=== PATIENT | male | born 1955 | race Caucasian/White ===

== ENCOUNTER 2017-07-20 21:01 | Inpatient (IN) | payer OTHER ==
[2017-07-20 21:37] LABS: ADD MAN DIFF? NO
[2017-07-20 21:38] LABS: BASOPHIL # 0.1 10^3/ul (0.0-0.1); BASOPHILS % 0.7 % (0.0-2.0); EOSINOPHILS # 0.2 10^3/ul (0.0-0.5); HEMATOCRIT 41.5 % (42.0-52.0); HEMOGLOBIN 13.9 g/dl (14.0-18.0); LYMPHOCYTES # 2.2 10^3/ul (0.8-2.9); LYMPHOCYTES % 21.5 % (15.0-51.0); MEAN CORPUSCULAR HEMOGLOBIN 32.4 pg (29.0-33.0); MEAN CORPUSCULAR HGB CONC 33.5 g/dl (32.0-37.0); MEAN CORPUSCULAR VOLUME 96.7 fl (82.0-101.0); MEAN PLATELET VOLUME 9.3 fl (7.4-10.4); MONOCYTE # 0.6 10^3/ul (0.3-0.9); MONOCYTES % 5.8 % (0.0-11.0); NEUTROPHIL # 7.1 10^3/ul (1.6-7.5); NEUTROPHILS % 69.4 % (39.0-77.0); PLATELET COUNT 249 10^3/UL (140-415); RED BLOOD COUNT 4.29 10^6/ul (4.70-6.10); RED CELL DISTRIBUTION WIDTH 13.7 % (11.5-14.5)
[2017-07-20 21:38] LABS: WHITE BLOOD COUNT 10.2 10^3/ul (4.8-10.8)
[2017-07-20] MEDS: ONDANSETRON 4 MG INJ IV (21:38)
[2017-07-20] MEDS: morphine 4 MG/ML VIAL IV (21:38)
[2017-07-20] MEDS: SOD CHLORIDE 0.9% 500 ML IV (21:38)
[2017-07-20 21:57] LABS: INR 1.13; PROTIME 14.7 Sec (11.9-14.9); PT RATIO 1.1
[2017-07-20 21:58] LABS: PARTIAL THROMBOPLASTIN TIME 35.7 Sec (25.0-35.0)
[2017-07-20] MEDS: SOD CHLORIDE 0.9% 100 ML (22:27)
[2017-07-20] MEDS: IOHEXOL 100 ML (22:27)
[2017-07-20 22:33] LABS: ANION GAP 15 (8-16); BLOOD UREA NITROGEN 17 mg/dl (7-20); CALCIUM 8.9 mg/dl (8.4-10.2); CARBON DIOXIDE 23 mmol/L (21-31); CHLORIDE 106 mmol/L (97-110); CREATININE 0.47 mg/dl (0.61-1.24); GLUCOSE 119 mg/dl (70-220); POTASSIUM 3.6 mmol/L (3.5-5.1); SODIUM 140 mmol/L (135-144)
[2017-07-20 22:46] LABS: TROPONIN-I < 0.012 ng/ml (0.00-0.12)
[2017-07-20] MEDS: DIPHENHYDRAMINE 50 MG INJ IV (23:20)
[2017-07-21] MEDS ORDERED: NITROGLYCERIN (SL) 0.4 MG TAB SL
[2017-07-21] MEDS ORDERED: NACL 0.9% 3 ML SYG IV
[2017-07-21] MEDS ORDERED: ACETAMINOPHEN 325 MG TAB PO ×2
[2017-07-21] MEDS ORDERED: ONDANSETRON 4 MG INJ IV ×2
[2017-07-21 01:40] LABS: ETHANOL < 10.0 mg/dl
[2017-07-21] MEDS: morphine 2 MG INJ IV ×4 (02:54→21:14)
[2017-07-21] MEDS: GABAPENTIN 100 MG CAP PO ×4 (02:54→21:15)
[2017-07-21] MEDS: SOD CHLORIDE 0.9% 1,000 ML IV (02:59)
[2017-07-21 04:16] LABS: ADD MAN DIFF? NO
[2017-07-21 04:18] LABS: WHITE BLOOD COUNT 9.5 10^3/ul (4.8-10.8)
[2017-07-21 04:18] LABS: BASOPHILS % 0.4 % (0.0-2.0); EOSINOPHILS # 0.2 10^3/ul (0.0-0.5); EOSINOPHILS % 2.2 % (0.0-7.0); HEMATOCRIT 39.2 % (42.0-52.0); HEMOGLOBIN 13.3 g/dl (14.0-18.0); LYMPHOCYTES # 2.3 10^3/ul (0.8-2.9); MEAN CORPUSCULAR HEMOGLOBIN 32.8 pg (29.0-33.0); MEAN CORPUSCULAR HGB CONC 33.9 g/dl (32.0-37.0); MEAN CORPUSCULAR VOLUME 96.8 fl (82.0-101.0); MEAN PLATELET VOLUME 9.1 fl (7.4-10.4); MONOCYTE # 0.5 10^3/ul (0.3-0.9); MONOCYTES % 5.7 % (0.0-11.0); NEUTROPHIL # 6.4 10^3/ul (1.6-7.5); NEUTROPHILS % 67.3 % (39.0-77.0); PLATELET COUNT 231 10^3/UL (140-415); RED BLOOD COUNT 4.05 10^6/ul (4.70-6.10); RED CELL DISTRIBUTION WIDTH 13.7 % (11.5-14.5)
[2017-07-21 04:36] LABS: ALANINE AMINOTRANSFERASE 18 IU/L (13-69); ALBUMIN 3.6 g/dl (3.3-4.9); ALBUMIN/GLOBULIN RATIO 0.94; ALKALINE PHOSPHATASE 109 IU/L (42-121); ANION GAP 12 (8-16); ASPARTATE AMINO TRANSFERASE 15 IU/L (15-46); BLOOD UREA NITROGEN 12 mg/dl (7-20); CALCIUM 8.3 mg/dl (8.4-10.2); CARBON DIOXIDE 26 mmol/L (21-31); CHLORIDE 109 mmol/L (97-110); CHOL/HDL RATIO 2.1 RATIO; CHOLESTEROL 104 mg/dl (100-200); CREATINE KINASE 54 IU/L (23-200); CREATININE 0.47 mg/dl (0.61-1.24); GLUCOSE 104 mg/dl (70-220); HDL CHOLESTEROL 49 mg/dl (30-78); LDL CHOLESTEROL,CALCULATED 44 mg/dl; MAGNESIUM 2.1 mg/dl (1.7-2.5); POTASSIUM 4.1 mmol/L (3.5-5.1); SODIUM 143 mmol/L (135-144); TOTAL PROTEIN 7.4 g/dl (6.1-8.1); TRIGLYCERIDES 56 mg/dl (0-149)
[2017-07-21 04:41] LABS: ADD UMIC NO; UR ASCORBIC ACID NEGATIVE (NEGATIVE); UR BILIRUBIN (Dip) NEGATIVE (NEGATIVE); UR BLOOD (Dip) NEGATIVE (NEGATIVE); UR CLARITY CLEAR (CLEAR); UR COLOR STRAW (YELLOW); UR GLUCOSE (Dip) NEGATIVE (NEGATIVE); UR KETONES (Dip) NEGATIVE (NEGATIVE); UR LEUKOCYTE ESTERASE (Dip) NEGATIVE Leu/ul (NEGATIVE); UR NITRITE (Dip) NEGATIVE (NEGATIVE); UR SPECIFIC GRAVITY (Dip) 1.021 (1.003-1.030); UR TOTAL PROTEIN (Dip) NEGATIVE (NEGATIVE); UR UROBILINOGEN (Dip) NEGATIVE (NEGATIVE)
[2017-07-21 04:43] LABS: HEMOGLOBIN A1C 5.4 % (0-5.9)
[2017-07-21 04:48] LABS: CK INDEX 1.3
[2017-07-21 04:49] LABS: CK-MB 0.71 ng/ml (0.0-2.4); TROPONIN-I < 0.012 ng/ml (0.00-0.12)
[2017-07-21 04:54] LABS: BARBITURATES Positive (NEGATIVE); BENZODIAZEPINES Positive (NEGATIVE); CANNABINOIDS Negative (NEGATIVE); OPIATES Positive (NEGATIVE)
[2017-07-21 05:03] LABS: AMPHETAMINE/METHAMPHETAMINE Negative (NEGATIVE); COCAINE Negative (NEGATIVE)
[2017-07-21] MEDS: ALBUTEROL/IPRATROPIUM (NEB) 3 ML AMP INH ×2 (05:23→08:43)
[2017-07-21] MEDS: ATENOLOL 50 MG TAB PO (08:55)
[2017-07-21] MEDS: DULOXETINE 30 MG CAP DR PO (08:55)
[2017-07-21] MEDS: FOLIC ACID 1 MG TAB PO (08:55)
[2017-07-21] MEDS: HYDROCHLOROTHIAZIDE 25 MG TAB PO (08:55)
[2017-07-21] MEDS: ARIPIPRAZOLE 5 MG TAB PO (08:55)
[2017-07-21 12:47] LABS: CREATINE KINASE 47 IU/L (23-200)
[2017-07-21 12:58] LABS: CK INDEX 1.3
[2017-07-21 13:01] LABS: CK-MB 0.61 ng/ml (0.0-2.4); TROPONIN-I < 0.012 ng/ml (0.00-0.12)
[2017-07-21] MEDS: CLOPIDOGREL 75 MG TAB PO (16:37)
[2017-07-21] MEDS: ATORVASTATIN 40 MG TAB PO (21:14)
[2017-07-22] MEDS: morphine 2 MG INJ IV ×3 (01:15→09:59)
[2017-07-22] MEDS: REGADENOSON 0.4 MG/5 ML SYG (08:45)
[2017-07-22] MEDS: HYDROCHLOROTHIAZIDE 25 MG TAB PO (09:55)
[2017-07-22] MEDS: CLOPIDOGREL 75 MG TAB PO (09:55)
[2017-07-22] MEDS: GABAPENTIN 100 MG CAP PO ×3 (09:55→20:40)
[2017-07-22] MEDS: FOLIC ACID 1 MG TAB PO (09:55)
[2017-07-22] MEDS: ATENOLOL 50 MG TAB PO (09:55)
[2017-07-22] MEDS: ARIPIPRAZOLE 5 MG TAB PO (09:55)
[2017-07-22] MEDS: DULOXETINE 30 MG CAP DR PO (09:56)
[2017-07-22] MEDS: HYDROCODONE/APAP (5/325) TAB PO ×2 (13:30→20:40)
[2017-07-22] MEDS: ATORVASTATIN 40 MG TAB PO (20:40)
[2017-07-23] MEDS: FOLIC ACID 1 MG TAB PO (08:32)
[2017-07-23] MEDS: ARIPIPRAZOLE 5 MG TAB PO (08:32)
[2017-07-23] MEDS: DULOXETINE 30 MG CAP DR PO (08:32)
[2017-07-23] MEDS: GABAPENTIN 100 MG CAP PO ×3 (08:32→20:18)
[2017-07-23] MEDS: HYDROCHLOROTHIAZIDE 25 MG TAB PO (08:33)
[2017-07-23] MEDS: ATENOLOL 50 MG TAB PO (08:33)
[2017-07-23 08:46] LABS: URINE DRUG SCREEN RESULT DRUG(S) DETECTED:
[2017-07-23] MEDS: HYDROCODONE/APAP (5/325) TAB PO ×3 (08:57→20:23)
[2017-07-23] MEDS: ATORVASTATIN 40 MG TAB PO (20:18)
[2017-07-24] MEDS: HYDROCODONE/APAP (5/325) TAB PO ×4 (03:10→17:42)
[2017-07-24] MEDS: DULOXETINE 30 MG CAP DR PO (08:30)
[2017-07-24] MEDS: ARIPIPRAZOLE 5 MG TAB PO (08:31)
[2017-07-24] MEDS: FOLIC ACID 1 MG TAB PO (08:31)
[2017-07-24] MEDS: HYDROCHLOROTHIAZIDE 25 MG TAB PO (08:31)
[2017-07-24] MEDS: CLOPIDOGREL 75 MG TAB PO (08:31)
[2017-07-24] MEDS: GABAPENTIN 100 MG CAP PO ×3 (08:32→20:26)
[2017-07-24] MEDS: ATENOLOL 50 MG TAB PO (08:32)
[2017-07-24] MEDS: ATORVASTATIN 40 MG TAB PO (20:26)
[2017-07-25] MEDS: DULOXETINE 30 MG CAP DR PO (09:03)
[2017-07-25] MEDS: FOLIC ACID 1 MG TAB PO (09:03)
[2017-07-25] MEDS: ARIPIPRAZOLE 5 MG TAB PO (09:03)
[2017-07-25] MEDS: GABAPENTIN 100 MG CAP PO ×3 (09:04→21:06)
[2017-07-25] MEDS: CLOPIDOGREL 75 MG TAB PO (09:04)
[2017-07-25] MEDS: HYDROCHLOROTHIAZIDE 25 MG TAB PO (09:04)
[2017-07-25] MEDS: ATENOLOL 50 MG TAB PO (09:06)
[2017-07-25] MEDS: HYDROCODONE/APAP (5/325) TAB PO ×3 (12:49→21:06)
[2017-07-25] MEDS: ATORVASTATIN 40 MG TAB PO (21:06)
[2017-07-25] MEDS: ZOLPIDEM 5 MG TAB PO (22:36)
[2017-07-26] MEDS: HYDROCODONE/APAP (5/325) TAB PO ×3 (08:20→17:41)
[2017-07-26] MEDS: DULOXETINE 30 MG CAP DR PO (08:21)
[2017-07-26] MEDS: GABAPENTIN 100 MG CAP PO ×3 (08:21→21:23)
[2017-07-26] MEDS: ARIPIPRAZOLE 5 MG TAB PO (08:21)
[2017-07-26] MEDS: FOLIC ACID 1 MG TAB PO (08:22)
[2017-07-26] MEDS: HYDROCHLOROTHIAZIDE 25 MG TAB PO (08:22)
[2017-07-26] MEDS: ATENOLOL 50 MG TAB PO (08:23)
[2017-07-26] MEDS: ATORVASTATIN 40 MG TAB PO (21:23)
[2017-07-27] MEDS: ARIPIPRAZOLE 5 MG TAB PO (08:23)
[2017-07-27] MEDS: GABAPENTIN 100 MG CAP PO ×3 (08:23→21:09)
[2017-07-27] MEDS: DULOXETINE 30 MG CAP DR PO (08:23)
[2017-07-27] MEDS: FOLIC ACID 1 MG TAB PO (08:23)
[2017-07-27] MEDS: ATENOLOL 50 MG TAB PO (08:26)
[2017-07-27] MEDS: HYDROCODONE/APAP (5/325) TAB PO ×4 (08:35→21:10)
[2017-07-27] MEDS: HYDROCHLOROTHIAZIDE 25 MG TAB PO (08:36)
[2017-07-27] MEDS: ATORVASTATIN 40 MG TAB PO (21:09)
[2017-07-28] MEDS: DULOXETINE 30 MG CAP DR PO (09:18)
[2017-07-28] MEDS: GABAPENTIN 100 MG CAP PO ×2 (09:18→13:58)
[2017-07-28] MEDS: FOLIC ACID 1 MG TAB PO (09:19)
[2017-07-28] MEDS: HYDROCODONE/APAP (5/325) TAB PO (09:19)
[2017-07-28] MEDS: ATENOLOL 50 MG TAB PO (09:19)
[2017-07-28] MEDS: HYDROCHLOROTHIAZIDE 25 MG TAB PO (09:20)
[2017-07-28] MEDS: ARIPIPRAZOLE 5 MG TAB PO (10:32)
== END 2017-07-28 16:19 | disposition home or self-care (01) | DRG 65 ==
LOC: MS4 23:31 → E/R 21:01
DX: I63.9 Cerebral infarction, unspecified (principal); G81.94 Hemiplegia, unspecified affecting left nondominant side; F33.9 Major depressive disorder, recurrent, unspecified; I67.1 Cerebral aneurysm, nonruptured; J84.10 Pulmonary fibrosis, unspecified; F17.210 Nicotine dependence, cigarettes, uncomplicated; R07.9 Chest pain, unspecified; E78.5 Hyperlipidemia, unspecified; I10 Essential (primary) hypertension; J44.9 Chronic obstructive pulmonary disease, unspecified; K21.9 Gastro-esophageal reflux disease without esophagitis; F41.9 Anxiety disorder, unspecified; G89.29 Other chronic pain; I25.10 Atherosclerotic heart disease of native coronary artery without angina pectoris; D36.7 Benign neoplasm of other specified sites; Z76.5 Malingerer [conscious simulation]; Z79.02 Long term (current) use of antithrombotics/antiplatelets; Z95.5 Presence of coronary angioplasty implant and graft; Z91.14 Patient's other noncompliance with medication regimen; Z86.718 Personal history of other venous thrombosis and embolism
CPT/HCPCS: 36415; 70450; 70546; 70549; 70551; 71045; 71275; 76536; 78452; 80048; 80053; 80061; 80306; 80307; 81003; 82550; 82553; 83036; 83735; 84443; 84484; 85025; 85610; 85730; 87081; 92526; 92610; 93005; 93017; 93306; 93880; 93922; 93970; 94640; 94664; 96374; 96375; 97116; 97161; 97165; 97530; 97535; 99217; 99285-25; G0378

== ENCOUNTER 2017-08-02 14:20 | Emergency (ER) | payer SELFPAY, OTHER | END 2017-08-02 17:56 | disposition left against medical advice (07) | LOC: E/R 14:20 | DX: Z53.21 Procedure and treatment not carried out due to patient leaving prior to being seen by health care provider (principal) | CPT/HCPCS: 93005 ==

== ENCOUNTER 2017-08-06 00:43 | Emergency (ER) | payer OTHER ==
[2017-08-06 03:57] LABS: ADD UMIC NO; UR ASCORBIC ACID NEGATIVE (NEGATIVE); UR BILIRUBIN (Dip) NEGATIVE (NEGATIVE); UR BLOOD (Dip) NEGATIVE (NEGATIVE); UR CLARITY CLEAR (CLEAR); UR COLOR STRAW (YELLOW); UR GLUCOSE (Dip) NEGATIVE (NEGATIVE); UR KETONES (Dip) NEGATIVE (NEGATIVE); UR LEUKOCYTE ESTERASE (Dip) NEGATIVE Leu/ul (NEGATIVE); UR NITRITE (Dip) NEGATIVE (NEGATIVE); UR SPECIFIC GRAVITY (Dip) 1.004 (1.003-1.030); UR TOTAL PROTEIN (Dip) NEGATIVE (NEGATIVE); UR UROBILINOGEN (Dip) NEGATIVE (NEGATIVE)
[2017-08-06 04:04] LABS: ADD MAN DIFF? NO
[2017-08-06 04:10] LABS: BARBITURATES Negative (NEGATIVE); CANNABINOIDS Negative (NEGATIVE)
[2017-08-06 04:11] LABS: AMPHETAMINE/METHAMPHETAMINE Negative (NEGATIVE); BENZODIAZEPINES Negative (NEGATIVE); COCAINE Negative (NEGATIVE)
[2017-08-06 04:23] LABS: OPIATES Positive (NEGATIVE)
[2017-08-06 04:28] LABS: ALANINE AMINOTRANSFERASE 30 IU/L (13-69); ALBUMIN 4.2 g/dl (3.3-4.9); ALBUMIN/GLOBULIN RATIO 1.05; ALKALINE PHOSPHATASE 95 IU/L (42-121); ANION GAP 18 (8-16); ASPARTATE AMINO TRANSFERASE 31 IU/L (15-46); BLOOD UREA NITROGEN 11 mg/dl (7-20); CALCIUM 8.6 mg/dl (8.4-10.2); CARBON DIOXIDE 23 mmol/L (21-31); CHLORIDE 110 mmol/L (97-110); CREATININE 0.54 mg/dl (0.61-1.24); GLUCOSE 82 mg/dl (70-220); SODIUM 147 mmol/L (135-144); TOTAL PROTEIN 8.2 g/dl (6.1-8.1)
[2017-08-06 04:29] LABS: BILIRUBIN,INDIRECT 0.1 mg/dl (0-1.1); BILIRUBIN,TOTAL 0.1 mg/dl (0.2-1.3)
[2017-08-06 04:30] LABS: WHITE BLOOD COUNT 10.3 10^3/ul (4.8-10.8)
[2017-08-06 04:30] LABS: BASOPHIL # 0.1 10^3/ul (0.0-0.1); BASOPHILS % 0.6 % (0.0-2.0); EOSINOPHILS # 0.1 10^3/ul (0.0-0.5); EOSINOPHILS % 1.4 % (0.0-7.0); HEMATOCRIT 39.2 % (42.0-52.0); HEMOGLOBIN 13.6 g/dl (14.0-18.0); LYMPHOCYTES # 2.7 10^3/ul (0.8-2.9); LYMPHOCYTES % 26.2 % (15.0-51.0); MEAN CORPUSCULAR HEMOGLOBIN 32.7 pg (29.0-33.0); MEAN CORPUSCULAR HGB CONC 34.7 g/dl (32.0-37.0); MEAN CORPUSCULAR VOLUME 94.2 fl (82.0-101.0); MEAN PLATELET VOLUME 9.7 fl (7.4-10.4); MONOCYTE # 0.6 10^3/ul (0.3-0.9); MONOCYTES % 5.8 % (0.0-11.0); NEUTROPHIL # 6.7 10^3/ul (1.6-7.5); NEUTROPHILS % 65.6 % (39.0-77.0); PLATELET COUNT 238 10^3/UL (140-415); RED BLOOD COUNT 4.16 10^6/ul (4.70-6.10); RED CELL DISTRIBUTION WIDTH 13.5 % (11.5-14.5)
[2017-08-06 04:32] LABS: ACETAMINOPHEN < 10.0 ug/ml (10.0-30.0); SALICYLATE < 1.0 mg/dl (5.0-30.0)
[2017-08-06] MEDS: CLOPIDOGREL 75 MG TAB PO (08:05)
[2017-08-06] MEDS: PHENYTOIN 100 MG CAP PO (08:05)
[2017-08-06] MEDS: PHENOBARBITAL 32.4 MG TAB PO (08:05)
[2017-08-06] MEDS: LORAZEPAM 2 MG INJ IM ×2 (08:05→18:53)
[2017-08-06] MEDS: ARIPIPRAZOLE 5 MG TAB PO ×2 (08:51→21:00)
[2017-08-06] MEDS: HALOPERIDOL 5 MG INJ IM (18:52)
[2017-08-06] MEDS: DIPHENHYDRAMINE 50 MG INJ IM (18:52)
[2017-08-07] MEDS: LORAZEPAM 2 MG INJ IM ×4 (05:28→20:11)
[2017-08-07] MEDS: HALOPERIDOL 5 MG INJ IM ×4 (05:28→20:10)
[2017-08-07] MEDS: DIPHENHYDRAMINE 50 MG INJ IM ×4 (05:28→20:11)
[2017-08-07] MEDS: ARIPIPRAZOLE 5 MG TAB PO ×2 (09:43→20:27)
[2017-08-08] MEDS: LORAZEPAM 2 MG INJ IM ×2 (03:57→09:19)
[2017-08-08] MEDS: HALOPERIDOL 5 MG INJ IM ×2 (03:58→09:19)
[2017-08-08] MEDS: DIPHENHYDRAMINE 50 MG INJ IM ×2 (03:58→09:19)
[2017-08-08] MEDS: ARIPIPRAZOLE 5 MG TAB PO (09:14)
[2017-08-08] MEDS ORDERED: ARIPIPRAZOLE 10 MG TAB PO (21:00)
== END 2017-08-08 15:06 ==
LOC: E/R 08-08 15:06
DX: F19.10 Other psychoactive substance abuse, uncomplicated (principal); R40.2252 Coma scale, best verbal response, oriented, at arrival to emergency department; F10.10 Alcohol abuse, uncomplicated; D64.9 Anemia, unspecified; I10 Essential (primary) hypertension; J44.9 Chronic obstructive pulmonary disease, unspecified; I25.10 Atherosclerotic heart disease of native coronary artery without angina pectoris; F17.210 Nicotine dependence, cigarettes, uncomplicated; R40.2142 Coma scale, eyes open, spontaneous, at arrival to emergency department; R40.2362 Coma scale, best motor response, obeys commands, at arrival to emergency department
CPT/HCPCS: 36415; 80053; 80307; 81003; 85025; 96372; 99285-25

== ENCOUNTER 2018-03-28 18:03 | Emergency (ER) | payer OTHER ==
[2018-03-29 00:12] LABS: ADD MAN DIFF? NO
[2018-03-29 00:15] LABS: WHITE BLOOD COUNT 4.8 10^3/ul (4.8-10.8)
[2018-03-29 00:15] LABS: BASOPHIL # 0.1 10^3/ul (0.0-0.1); EOSINOPHILS # 0.2 10^3/ul (0.0-0.5); EOSINOPHILS % 3.3 % (0.0-7.0); HEMATOCRIT 36.8 % (42.0-52.0); LYMPHOCYTES # 1.7 10^3/ul (0.8-2.9); LYMPHOCYTES % 34.7 % (15.0-51.0); MEAN CORPUSCULAR HEMOGLOBIN 28.6 pg (29.0-33.0); MEAN CORPUSCULAR HGB CONC 32.6 g/dl (32.0-37.0); MEAN CORPUSCULAR VOLUME 87.8 fl (82.0-101.0); MEAN PLATELET VOLUME 9.3 fl (7.4-10.4); MONOCYTE # 0.5 10^3/ul (0.3-0.9); MONOCYTES % 9.3 % (0.0-11.0); NEUTROPHIL # 2.5 10^3/ul (1.6-7.5); NEUTROPHILS % 51.3 % (39.0-77.0); PLATELET COUNT 319 10^3/UL (140-415); RED BLOOD COUNT 4.19 10^6/ul (4.70-6.10)
[2018-03-29 00:40] LABS: ALANINE AMINOTRANSFERASE 19 IU/L (13-69); ALBUMIN 3.9 g/dl (3.3-4.9); ALBUMIN/GLOBULIN RATIO 1.11; ALKALINE PHOSPHATASE 84 IU/L (42-121); ANION GAP 9 (5-13); ASPARTATE AMINO TRANSFERASE 19 IU/L (15-46); BILIRUBIN,INDIRECT 0.1 mg/dl (0-1.1); BILIRUBIN,TOTAL 0.1 mg/dl (0.2-1.3); BLOOD UREA NITROGEN 11 mg/dl (7-20); CARBON DIOXIDE 27 mmol/L (21-31); CHLORIDE 106 mmol/L (97-110); CREATININE 0.46 mg/dl (0.61-1.24); Estimated GFR > 60 mL/min (>60); GLUCOSE 91 mg/dl (70-220); POTASSIUM 3.8 mmol/L (3.5-5.1); SODIUM 142 mmol/L (135-144); TOTAL PROTEIN 7.4 g/dl (6.1-8.1)
[2018-03-29 00:52] LABS: B-TYPE NATRIURETIC PEPTIDE 39 PG/ML (0-125); TROPONIN-I < 0.012 ng/ml (0.000-0.120)
== END 2018-03-29 03:19 | disposition home or self-care (01) ==
LOC: E/R 18:03
DX: R07.9 Chest pain, unspecified (principal); I25.2 Old myocardial infarction; I10 Essential (primary) hypertension; J44.9 Chronic obstructive pulmonary disease, unspecified; Z79.01 Long term (current) use of anticoagulants; Z85.21 Personal history of malignant neoplasm of larynx; Z87.891 Personal history of nicotine dependence; Z98.61 Coronary angioplasty status
CPT/HCPCS: 36415; 71045; 80053; 83880; 84484; 85025; 93005; 99285-25

== ENCOUNTER 2018-10-25 13:24 | Emergency (ER) | payer OTHER ==
[2018-10-25] MEDS: SOD CHLORIDE 0.9% 1,000 ML IV (13:56)
[2018-10-25 14:03] LABS: ADD MAN DIFF? NO
[2018-10-25 14:05] LABS: WHITE BLOOD COUNT 7.3 10^3/ul (4.8-10.8)
[2018-10-25 14:05] LABS: BASOPHILS % 0.4 % (0.0-2.0); EOSINOPHILS # 0.1 10^3/ul (0.0-0.5); EOSINOPHILS % 1.5 % (0.0-7.0); HEMATOCRIT 50.3 % (42.0-52.0); HEMOGLOBIN 16.4 g/dl (14.0-18.0); LYMPHOCYTES # 1.7 10^3/ul (0.8-2.9); LYMPHOCYTES % 23.1 % (15.0-51.0); MEAN CORPUSCULAR HEMOGLOBIN 28.5 pg (29.0-33.0); MEAN CORPUSCULAR HGB CONC 32.6 g/dl (32.0-37.0); MEAN CORPUSCULAR VOLUME 87.5 fl (82.0-101.0); MEAN PLATELET VOLUME 9.3 fl (7.4-10.4); MONOCYTE # 0.5 10^3/ul (0.3-0.9); MONOCYTES % 6.3 % (0.0-11.0); NEUTROPHILS % 68.6 % (39.0-77.0); PLATELET COUNT 324 10^3/UL (140-415); RED BLOOD COUNT 5.75 10^6/ul (4.70-6.10); RED CELL DISTRIBUTION WIDTH 15.7 % (11.5-14.5)
[2018-10-25 14:36] LABS: ALANINE AMINOTRANSFERASE 75 IU/L (13-69); ALKALINE PHOSPHATASE 197 IU/L (42-121); ANION GAP 12 (5-13); ASPARTATE AMINO TRANSFERASE 37 IU/L (15-46); BILIRUBIN,INDIRECT 0.4 mg/dl (0-1.1); BILIRUBIN,TOTAL 0.4 mg/dl (0.2-1.3); BLOOD UREA NITROGEN 17 mg/dl (7-20); CALCIUM 10.2 mg/dl (8.4-10.2); CARBON DIOXIDE 29 mmol/L (21-31); CHLORIDE 104 mmol/L (97-110); Estimated GFR > 60 mL/min (>60); GLUCOSE 102 mg/dl (70-220); POTASSIUM 3.7 mmol/L (3.5-5.1); SODIUM 145 mmol/L (135-144)
[2018-10-25 14:40] LABS: ETHANOL < 10.0 mg/dl (0-0)
[2018-10-25 14:47] LABS: TROPONIN-I < 0.012 ng/ml (0.000-0.120)
== END 2018-10-25 14:32 | disposition left against medical advice (07) ==
LOC: E/R 13:24
DX: I10 Essential (primary) hypertension (principal); J44.9 Chronic obstructive pulmonary disease, unspecified; I25.2 Old myocardial infarction; Z79.01 Long term (current) use of anticoagulants; Z79.4 Long term (current) use of insulin; Z85.21 Personal history of malignant neoplasm of larynx; Z87.891 Personal history of nicotine dependence; Z98.61 Coronary angioplasty status
CPT/HCPCS: 80053; 80307; 84484; 85025; 99284-25